=== PATIENT | male | born 1950 | race Caucasian/White ===

== ENCOUNTER 2018-12-16 19:27 | Emergency (ER) | payer OTHER ==
[~2018-12-16] VITALS: Ht 172.7 cm; Wt 99.3 kg
[2018-12-16] MEDS ORDERED: ROSUVASTATIN CA10 MG (19:44)
[2018-12-16] MEDS ORDERED: ZETIA10 MG (19:44)
[2018-12-16] MEDS ORDERED: [UNRECOGNIZED DRUG - OTHER] (19:45)
[2018-12-16] MEDS ORDERED: ASPIRIN81 MG (19:46)
[2018-12-17] MEDS ORDERED: AMOX-CLAV 875-1 EACH PO (02:34)
== END 2018-12-17 02:42 | disposition home or self-care (01) ==
LOC: ER 19:27
DX: E86.0 Dehydration (principal); R30.0 Dysuria; R50.9 Fever, unspecified; R06.02 Shortness of breath; F41.1 Generalized anxiety disorder